=== PATIENT | male | born 1965 | race Hispanic/Latino ===

== ENCOUNTER 2017-06-07 23:42 | Emergency (ER) | payer OTHER ==
--- NOTE | 2017-06-08 07:37 | RAD ---
TWO VIEWS THIRD DIGIT LEFT HAND: HISTORY: Trauma to third digit 45 minutes prior to arrival. FINDINGS: AP and lateral views third digit left hand obtained. Images demonstrate an exophytic bone spur along the medial aspect of the distal phalanx third digit. This appears to be chronic. No evidence of acute third digit fractures or bony lesions seen. IMPRESSION: No evidence of acute left third digit abnormality seen. POS: [facility]
== END 2017-06-08 00:20 | disposition home or self-care (01) ==
LOC: NAV ERS 23:42
DX: S60.032A Contusion of left middle finger without damage to nail, initial encounter (principal); W31.89XA Contact with other specified machinery, initial encounter; Y92.69 Other specified industrial and construction area as the place of occurrence of the external cause
CPT/HCPCS: 99001

== ENCOUNTER 2017-07-18 15:37 | Emergency (ER) | payer OTHER ==
[2017-07-18] MEDS ORDERED: Ketorolac Tromethamine 30 MG/ML VIAL ONE (16:20)
[2017-07-18] MEDS ORDERED: Dexamethasone 20 MG/5 ML VIAL ONE (16:21)
== END 2017-07-18 16:35 | disposition home or self-care (01) ==
LOC: NAV ERS 15:37
DX: M54.16 Radiculopathy, lumbar region (principal)
CPT/HCPCS: 96372; J1100; J1885